=== PATIENT | male | born 1955 | race Caucasian/White ===

== ENCOUNTER → 2022-09-13 | Outpatient (CLI) | payer OTHER, MEDICARE, SELFPAY ==
[2022-09-13 12:03] LABS: Absolute Lymphocyte Count 1.15 X10^3/uL (0.83-4.51); Absolute Neutrophil Count 4.7 X10^3/uL (2.0-7.7); Basophil# 0.04 X10^3/uL; Basophil% 0.6 % (0-1); Eosinophil# 0.14 X10^3/uL; Eosinophils% 2.1 % (0-5); Hematocrit 49.7 % (40-54); Hemoglobin 16.3 g/dL (13.0-16.5); Lymphocyte # 1.15 X10^3/ul (0.83-4.51); Lymphocyte % 17.4 % (19-41); Mean Corp Hgb Conc 32.8 g/dL (32-36); Mean Corpuscular Hgb 29.1 pg (27.0-32.0); Mean Corpuscular Volume 88.8 fL (80-94); Mean Platelet Vol. 11.5 fl (6.2-12.0); Monocyte# 0.53 X10^3/uL; NRBC Flagged by Analyzer 0 % (0-5); Neutrophil # 4.72 X10^3/uL (2.7-7.7); Neutrophil % 71.6 % (47-70); Platelet Count 225 K/mm3 (150-450); RBC Distribution Width SD 42.3 fl (35.1-43.9); White Blood Count 6.6 K/mm3 (4.4-11.0)
[2022-09-13 12:18] LABS: ALB/GLOB Ratio 0.9 RATIO (0.9-2.4); AST(SGOT) 16 U/L (15-37); Alanine Aminotransfer ALT/SGPT 18 U/L (16-61); Albumin, Serum 3.8 g/dL (3.2-5.0); Alkaline Phosphatase 74 U/L (45-117); Anion Gap 6 (5-15); BUN 13 mg/dL (7-18); BUN/Creat Ratio 13.4 RATIO (10-20); Calcium,Total 9.5 mg/dL (8.5-10.1); Chloride 107 mmol/L (98-107); Cholesterol 118 mg/dL (200); Creatinine, Serum 0.97 mg/dL (0.70-1.30); EST Glomerular Filtration Rate 82 mL/min (>60); Est Glom Filt Rate - Afr Amer 100 mL/min (>60); Globulin 4.3 g/dL (2.2-4.2); Glucose 110 mg/dL (74-106); High Density Lipoprotein 28 mg/dL; Potassium 3.9 mmol/L (3.5-5.1); Protein, Total 8.1 g/dL (6.4-8.2); Sodium Level 139 mmol/L (136-145); Triglycerides 132 mg/dL; Very Low Density Lipoprotein 26 mg/dL (5-40)
== END | disposition home or self-care (01) ==
LOC: MFPLAB 09:22
PROVIDERS: PCP Family Medicine; Visit Provider Family Medicine
DX: I10 Essential (primary) hypertension (principal); E78.5 Hyperlipidemia, unspecified
CPT/HCPCS: 36415; 80053; 80061; 85025

== ENCOUNTER 2024-09-24 08:54 | Outpatient (CLI) | payer MEDICARE, SELFPAY ==
--- OUTSIDE RECORDS SUMMARY | 2024-09-24 09:30 | XMS RPT_ITS | CCD ---
Author Organization [facility] ion Partnership [facility] Care Team Providers Care Supervisor [employer] Name Role Phone Brianne Iqbal Attending Unavailable Brianne Iqbal Primary Care Unavailable Problems Problem Classification Problem Date Documented Da te Episodic/Chronic Essential hypertension (1 source) Essential (primary) hypertension; Translations: [Essential (primary) hypertension] Onset: 09-20-2022 Chronic Results Test Name Value Interpretation Reference Range Facility Absolute lymphocyte countOrd ered By: Brianne Iqbal on 09-13-2022 Lymphocytes Auto (Unsp spec) [#/Vol] 1.15 10*3/uL 0.83-4.51 [facility] Basophil percentageOrdered B y: Brianne Iqbal on 09-13-2022 Basophils/100 WBC (Bld) 0.6 % 0-1 [facility] Bilirubin [Mass/Vol] 0.70 mg/dL 0.20-1.00 [facility] Comment on above: For patients on eltr ombopag therapy, use of Dimension [place] TBIL is not recommended. Chloride [Moles/Vol] 107 mmol/L 98-107 [facility] Cholesterol [Mass/Vol] 118 mg/dL <[address] [facility] Comment on above: <200 mg/dL Desirable 200-240 mg/dL Borderline >240 mg/dL High Risk Eosinophils/100 WBC (Bld) 2.1 % 0-5 [facility] Glucose [Mass/Vol] 110 mg/dL 74-106 [facility] Comment on above: Fasting Glucose resu lt from 100 to 125 mg/dL suggests IMPAIRED HOMEOSTASIS per A.D.A. criteria. Neutrophils (Bld) [#/Vol] 4.7 10*3/uL 2.0-7.7 [facility] Neutrophils/100 WBC (Bld) 71.6 % 47-70 [facility] Potassium [Moles/Vol] 3.9 mmol/L 3.5-5.1 [facility] Protein [Mass/Vol] 8.1 g/dL 6.4-8.2 [facility] Sodium [Moles/Vol] 139 mmol/L 136-145 [facility] Triglyceride [Mass/Vol] 132 mg/dL <199 [facility] Comment on above: The drugs N-Acetylcy steine and Metamizole may falsely depress this assay.Serum Triglycerides Reference Interval Normal <150 mg/dL Borderline high 150 - 199 mg/dL High 200 - 499 mg/dL Very High > or = 500 mg/dL WBC (Bld) [#/Vol] 6.6 10*3/uL 4.4-11.0 [facility] Blood erythrocytes count (nu mber/volume)Ordered By: Brianne Iqbal on 09-13-2022 RBC (Bld) [#/Vol] 5.60 10*6/uL 4.6-6.2 [facility] Blood hemoglobin measurement (mass/volume)Ordered By: Brianne Iqbal on 09-13-2022 Hemoglobin (Bld) [Mass/Vol] 16.3 g/dL 13.0-16.5 [facility] Blood lymphocytes/100 leukoc ytesOrdered By: Brianne Iqbal on 09-13-2022 Lymphocytes/100 WBC (Bld) 17.4 % 19-41 [facility] Blood monocytes/100 leukocyt esOrdered By: Brianne Iqbal on 09-13-2022 Monocytes/100 WBC (Bld) 8.0 % 0-10 [facility] Blood platelet mean volumeOr dered By: Brianne Iqbal on 09-13-2022 Platelet mean volume (Bld) [Entitic vol] 11.5 fL 6.2-12.0 [facility] CBC W/Diff, Automatedon Absolute Lymph 1.15 X10 3/uL Normal 0.83-4.51 [facility] Comment on above: Performed By: #### L 100.0100, L500.4100, L500.4050 #### [facility] Laboratory [facility] [address] [place], [place], [id number] Absolute Neut 4.7 X10 3/uL Normal 2.0-7.7 [facility] Comment on above: Performed By: #### L 100.0100, L500.4100, L500.4050 #### [facility] Laboratory [address] [place], [address] Basophils/100 WBC (Bld) 0.6 % Normal 0-1 [facility] Comment on above: Performed By: #### L 100.0100, L500.4100, L500.4050 #### [facility] [address] [place], [address] Eosinophils/100 WBC (Bld) 2.1 % Normal 0-5 [facility] Comment on above: Performed By: #### L 100.0100, L500.4100, L500.4050 #### [facility] [address] [place], [address] Erythrocyte distribution width (RBC) [Ratio] 13.0 % Normal 11.6-14.6 [facility] Comment on above: Performed By: #### L 100.0100, L500.4100, L500.4050 #### [facility] [address] [place], [address] Hematocrit (Bld) [Volume fraction] 49.7 % Normal 40-54 [facility] Comment on above: Performed By: #### L 100.0100, L500.4100, L500.4050 #### [facility] [address] [place], [address] Hemoglobin (Bld) [Mass/Vol] 16.3 g/dL Normal 13.0-16.5 [facility] Comment on above: Performed By: #### L 100.0100, L500.4100, L500.4050 #### [facility] [address] [place], [address] IG% 0.300 Normal 0.0-0.9 [facility] Comment on above: Result Comment: IG% - Immature Granulocytes (promyelocytes, myelocytes and metamyelocytes) > 1% indicates that a LEFT SHIFT is Present. Performed By: #### L 100.0100, L500.4100, L500.4050 #### [facility] [address] [place], [address] Lymphocytes/100 WBC (Bld) 17.4 % Low 19-41 [facility] Comment on above: Performed By: #### L 100.0100, L500.4100, L500.4050 #### [facility] [address] [place], [address] MCH (RBC) [Entitic mass] 29.1 pg Normal 27.0-32.0 [facility] Comment on above: Performed By: #### L 100.0100, L500.4100, L500.4050 #### [facility] [address] [place], [address] MCHC (RBC) [Mass/Vol] 32.8 g/dL Normal 32-36 [facility] Comment on above: Performed By: #### L 100.0100, L500.4100, L500.4050 #### [facility] [address] [place], [address] MCV (RBC) [Entitic vol] 88.8 fL Normal 80-94 [facility] Comment on above: Performed By: #### L 100.0100, L500.4100, L500.4050 #### [facility] [address] [place], [address] Monocytes/100 WBC (Bld) 8.0 % Normal 0-10 [facility] Comment on above: Performed By: #### L 100.0100, L500.4100, L500.4050 #### [facility] [address] [place], [address] Neutrophils/100 WBC (Bld) 71.6 % High 47-70 [facility] Comment on above: Performed By: #### L 100.0100, L500.4100, L500.4050 #### [facility] [address] [place], [address] Nucleated RBC (Bld) [#/Vol] 0 10*3/uL Normal 0-5 [facility] Comment on above: Performed By: #### L 100.0100, L500.4100, L500.4050 #### [facility] [address] [place], [address] Platelet mean volume (Bld) [Entitic vol] 11.5 fL Normal 6.2-12.0 [facility] Comment on above: Performed By: #### L 100.0100, L500.4100, L500.4050 #### [facility] [address] [place], [address] Platelets (Bld) [#/Vol] 225 10*3/uL Normal 150-450 [facility] Comment on above: Performed By: #### L 100.0100, L500.4100, L500.4050 #### [facility] [address] [place], [address] RBC (Bld) [#/Vol] 5.60 10*6/uL Normal 4.6-6.2 [facility] Comment on above: Performed By: #### L 100.0100, L500.4100, L500.4050 #### [facility] [address] [place], [address] RDW SD 42.3 fl Normal 35.1-43.9 [facility] Comment on above: Performed By: #### L 100.0100, L500.4100, L500.4050 #### [facility] [address] [place], [address] WBC (Bld) [#/Vol] 6.6 10*3/uL Normal 4.4-11.0 [facility] Comment on above: Performed By: #### L 100.0100, L500.4100, L500.4050 #### [facility] [address] [place], [address] Comprehensive Metabolic Prof ilon 09-13-2022 Albumin [Mass/Vol] 3.8 g/dL Normal 3.2-5.0 [facility] Comment on above: Performed By: #### L 100.0100, L500.4100, L500.4050 #### [facility] [address] [place], [address] Albumin/Globulin [Mass ratio] 0.9 {ratio} Normal 0.9-2.4 [facility] Comment on above: Performed By: #### L 100.0100, L500.4100, L500.4050 #### [facility] [address] [place], [address] ALK P 74 U/L Normal 45-117 [facility] Comment on above: Performed By: #### L 100.0100, L500.4100, L500.4050 #### [facility] [address] [place], [address] ALT [Catalytic activity/Vol] 18 U/L Normal 16-61 [facility] Comment on above: Performed By: #### L 100.0100, L500.4100, L500.4050 #### [facility] [address] [place], [address] AST [Catalytic activity/Vol] 16 U/L Normal 15-37 [facility] Comment on above: Performed By: #### L 100.0100, L500.4100, L500.4050 #### [facility] [address] [place], [address] Bilirubin [Mass/Vol] 0.70 mg/dL Normal 0.20-1.00 [facility] Comment on above: Result Comment: For patients on eltrombopag therapy, use of Dimension [place] TBIL is not recommended. Performed By: #### L 100.0100, L500.4100, L500.4050 #### [facility] [address] [place], [address] BUN/CRE 13.4 RATIO Normal 10-20 [facility] Comment on above: Performed By: #### L 100.0100, L500.4100, L500.4050 #### [facility] [address] [place], [address] CA,Total 9.5 mg/dL Normal 8.5-10.1 [facility] Comment on above: Performed By: #### L 100.0100, L500.4100, L500.4050 #### [facility] [address] [place], [address] Chloride [Moles/Vol] 107 mmol/L Normal 98-107 [facility] Comment on above: Performed By: #### L 100.0100, L500.4100, L500.4050 #### [facility] [address] [place], [address] CO2 [Moles/Vol] 26.0 mmol/L Normal 21.0-32.0 [facility] Comment on above: Performed By: #### L 100.0100, L500.4100, L500.4050 #### [facility] [address] [place], [address] Creatinine [Mass/Vol] 0.97 mg/dL Normal 0.70-1.30 [facility] Comment on above: Result Comment: The validity of the calculated GFR GFRAA in patients over 70 years has not been determined. Clinical correlation is essential. Performed By: #### L 100.0100, L500.4100, L500.4050 #### [facility] [address] [place], [address] EST GFR - AA 100 mL/min Normal >60 [facility] Comment on above: Result Comment: Afri can [place] GFR Calc Performed By: #### L 100.0100, L500.4100, L500.4050 #### [facility] [address] [place], [address] GAP 6 Normal 5-15 [facility] Comment on above: Performed By: #### L 100.0100, L500.4100, L500.4050 #### [facility] [address] [place], [address] GFR/1.73 sq M.predicted among non-blacks MDRD (S/P/Bld) [Vol rate/Area] 82 mL/min/{1.73_m2} Normal >60 [facility] Comment on above: Result Comment: Non- GFR Calc Performed By: #### L 100.0100, L500.4100, L500.4050 #### [facility] [address] [place], [address] Globulin (S) [Mass/Vol] 4.3 g/dL High 2.2-4.2 [facility] Comment on above: Performed By: #### L 100.0100, L500.4100, L500.4050 #### [facility] [address] [place], [address] Glucose [Mass/Vol] 110 mg/dL High 74-106 [facility] Comment on above: Result Comment: Fast ing Glucose result from 100 to 125 mg/dL suggests IMPAIRED HOMEOSTASIS per A.D.A. criteria. Performed By: #### L 100.0100, L500.4100, L500.4050 #### [facility] [address] [place], [address] Potassium [Moles/Vol] 3.9 mmol/L Normal 3.5-5.1 [facility] Comment on above: Performed By: #### L 100.0100, L500.4100, L500.4050 #### [facility] [address] [place], [address] Sodium [Moles/Vol] 139 mmol/L Normal 136-145 [facility] Comment on above: Performed By: #### L 100.0100, L500.4100, L500.4050 #### [facility] [address] [place], [address] T PROT 8.1 g/dL Normal 6.4-8.2 [facility] Comment on above: Performed By: #### L 100.0100, L500.4100, L500.4050 #### [facility] [address] [place], [address] Urea nitrogen [Mass/Vol] 13 mg/dL Normal 7-18 [facility] Comment on above: Performed By: #### L 100.0100, L500.4100, L500.4050 #### [facility] [address] [place], [address] Determination of erythrocyte mean corpuscular volume (MCV)Ordered By: Brianne Iqbal on 09-13-2022 MCV (RBC) [Entitic vol] 88.8 fL 80-94 [facility] Hematocrit Auto (Bld) [Volum e fraction]Ordered By: Brianne Iqbal on 09-13-2022 Hematocrit (Bld) [Volume fraction] 49.7 % 40-54 [facility] - Chemistry and C hemistry - challengeOrdered By: Brianne Iqbal on 09-13-2022 ALP [Catalytic activity/Vol] 74 U/L 45-117 [facility] ALT [Catalytic activity/Vol] 18 U/L 16-61 [facility] CO2 [Moles/Vol] 26.0 mmol/L 21.0-32.0 [facility] Globulin (S) [Mass/Vol] 4.3 g/dL 2.2-4.2 [facility] Urea nitrogen/Creatinine [Mass ratio] 13.4 mg/mg 10-20 [facility] Laboratory - Hematology and Cell countsOrdered By: Brianne Iqbal on 09-13-2022 Erythrocyte distribution width (RBC) [Entitic vol] 42.3 fL 35.1-43.9 [facility] Erythrocyte distribution width (RBC) [Ratio] 13.0 % 11.6-14.6 [facility] Immature granulocytes/100 WBC (Bld) 0.300 % 0.0-0.9 [facility] Comment on above: IG% - Immature Granu locytes (promyelocytes, myelocytes and metamyelocytes) > 1% indicates that a LEFT SHIFT is Present. MCH (RBC) [Entitic mass] 29.1 pg 27.0-32.0 [facility] Nucleated RBC/100 WBC (Bld) [Ratio] 0 % 0-5 [facility] Lipid Profileon 09-13-2022 Cholesterol [Mass/Vol] 118 mg/dL Normal [address] [facility] Comment on above: Result Comment: <200 mg/dL Desirable 200-240 mg/dL Borderline >240 mg/dL High Risk Performed By: #### L 100.0100, L500.4100, L500.4050 #### [facility] [address] [place], [address] Cholesterol in HDL [Mass/Vol] 28 mg/dL Low [facility] Comment on above: Result Comment: The drugs N-Acetylcysteine and Metamizole may falsely depress this assay. Reference Range HDL <40 mg/dL Low HDL Cholesterol HDL >or= 60 mg/dL High HDL Cholesterol Performed By: #### L 100.0100, L500.4100, L500.4050 #### [facility] [address] [place], [address] Cholesterol in LDL [Mass/Vol] 64 mg/dL Normal 0-130 [facility] Comment on above: Performed By: #### L 100.0100, L500.4100, L500.4050 #### [facility] [address] [place], [address] Cholesterol in VLDL [Mass/Vol] 26 mg/dL Normal 5-40 [facility] Comment on above: Performed By: #### L 100.0100, L500.4100, L500.4050 #### [facility] [address] [place], [address] Triglyceride [Mass/Vol] 132 mg/dL Normal [facility] Comment on above: Result Comment: The drugs N-Acetylcysteine and Metamizole may falsely depress this assay. Serum Triglycerides Reference Interval Normal <150 mg/dL Borderline high 150 - 199 mg/dL High 200 - 499 mg/dL Very High > or = 500 mg/dL Performed By: #### L 100.0100, L500.4100, L500.4050 #### [facility] [address] [place], [address] MCHC Auto (RBC) [Mass/Vol]Or dered By: Brianne Iqbal on 09-13-2022 MCHC (RBC) [Mass/Vol] 32.8 g/dL 32-36 [facility] No Panel InformationOrdered By: Brianne Iqbal on 09-13-2022 Estimated GFR (MDRD) Amer 100 mL/min >60 [facility] Comment on above: GFR Calc Estimated GFR (MDRD) Non-Af Amer 82 mL/min >60 [facility] Comment on above: Non- GFR Calc Platelets bldOrdered By: Nini Iqbal on 09-13-2022 Platelets (Bld) [#/Vol] 225 10*3/uL 150-450 [facility] Serum or plasma albumin elenita urement (mass/volume)Ordered By: Brianne Iqbal on 09-13-2022 Albumin [Mass/Vol] 3.8 g/dL 3.2-5.0 [facility] Serum or plasma albumin/glob ulin mass ratioOrdered By: Brianne Iqbal on 09-13-2022 Albumin/Globulin [Mass ratio] 0.9 {ratio} 0.9-2.4 [facility] Serum or plasma calcium elenita urement (mass/volume)Ordered By: Brianne Iqbal on 09-13-2022 Calcium [Mass/Vol] 9.5 mg/dL 8.5-10.1 [facility] Serum or plasma cholesterol in HDL measurement (mass/volume)Ordered By: Brianne Iqbal on 09-13-2022 Cholesterol in HDL [Mass/Vol] 28 mg/dL >40 [facility] Comment on above: The drugs N-Acetylcy steine and Metamizole may falsely depress this assay. Reference Range HDL <40 mg/dL Low HDL Cholesterol HDL >or= 60 mg/dL High HDL Cholesterol Serum or plasma cholesterol in VLDL measurement (mass/volume)Ordered By: Brianne Iqbal on 09-13-2022 Cholesterol in VLDL [Mass/Vol] 26 mg/dL 5-40 [facility] Serum or plasma creatinine m easurement (mass/volume)Ordered By: Brianne Iqbal on 09-13-2022 Creatinine [Mass/Vol] 0.97 mg/dL 0.70-1.30 [facility] Comment on above: The validity of the calculated GFR & GFRAA in patients over 70 years has not been determined. Clinical correlation is essential. Serum or plasma low density lipoprotein (LDL) cholesterol measurement (mass/volume)Ordered By: Brianne Iqbal on 09-13-2022 Cholesterol in LDL [Mass/Vol] 64 mg/dL 0-130 [facility] Serum or plasma urea nitroge n measurement (mass/volume)Ordered By: Brianne Iqbal on 09-13-2022 Urea nitrogen [Mass/Vol] 13 mg/dL 7-18 [facility] Thin prep Papanicolaou smear with manual screeningOrdered By: Brianne Iqbal on 09-13-2022 Thin prep Papanicolaou smear with manual screening 16 U/L 15-37 [facility] Thin prep Papanicolaou smear with manual screening 6 5-15 [facility] CNPNon 11-06-2020 CARYNN Telephone ([facility]) COSME DANG ([id number]) 1955 M Date Time Provider Department 11/06/20 TANO BELTRÁN During your visit today, we recorded the following information about you: Julieta Cooley LPN 11/06/2020 10:57 AM Signed ----- Message from Tano Beltrán APRN.ROMERO RUBIN sent at 11/05/2020 10:07 PM EDT ----- Please inform the patient: A1C is stable at 6%. Triglycerides are mildly elevated. Good cholesterol is less than optimal. The rest of the lab results are unremarkable. Tano Beltrán APRN.ROMERO RUBIN LPN 11/06/2020 11:01 AM Signed Phoned patient and left message to return call and ask to speak to a nurse. Dede Orta RN 11/08/2020 11:45 AM Signed Patient notified of results and provider's instructions. Patient verbalizes understanding. Dede Orta RN Allergies As of Date: 11/06/2020 Noted Allergy Reaction RAGWEED 10/01/2011 14 - Other: See Comments Date Reviewed: 11/01/2020 Reviewed by: Tano Beltrán APRN.ROMERO RUBIN - Fully Assessed Reason for Visit: Results [95] Prescriptions as of 11/08/2020 - bisoprolol-hydroCHLO ROthiazide (ZIAC) 10-6.25 mg per tablet Take 1 tablet by mouth once daily. - simvastatin (ZOCOR) 20 mg tablet Take 1 tablet by mouth daily at bedtime. - Umajc-1-OOL-EPA-Fish Oil (FISH OIL) 1,000 mg (120 mg-180 mg) cap Take 1 capsule by mouth once daily. - multivitamins(DAILY MULTIVITAMIN TAB) Take one(1) tablet daily. - LORATADINE 10 MG TAB Take one(1) tablet daily. as needed Problem List As Of Date 11/06/2020 Noted Resolved Meniere's Disease [H81.09] 03/09/2009 Change in skin moles [D22.9] 03/09/2009 09/12/2014 Essential Hypertension, Benign [I10] 04/12/2009 Basal Cell Carcinoma of Skin [C44.91] 04/12/2009 Allergic rhinitis [J30.9] 10/01/2011 Impaired fasting glucose [R73.01] 11/16/2015 Hyperlipidemia LDL goal <130 [E78.5] 11/16/2015 Encounter Status:Closed by DEDE ORTA RN on 11/08/20 Normal [facility] CBC and Differentialon 11-04 Abs Baso 0.05 k/uL Normal <0.11 [facility] Comment on above: Performed By: #### C MP, LIPB, HBA1C, CBCDIF #### [facility] [place] [address] Abs [place] 0.67 k/uL Normal <0.87 [facility] Comment on above: Performed By: #### C MP, LIPB, HBA1C, CBCDIF #### [facility] [place] [address] Abs Neut 5.10 k/uL Normal 1.45-7.50 [facility] Comment on above: Performed By: #### C MP, LIPB, HBA1C, CBCDIF #### [facility] [place] [address] Absolute nRBC <0.01 Normal <0.01 [facility] Comment on above: Performed By: #### C MP, LIPB, HBA1C, CBCDIF #### [facility] [address] [place] [address] Basophils/100 WBC (Bld) 0.7 % Normal [facility] Comment on above: Performed By: #### C MP, LIPB, HBA1C, CBCDIF #### [facility] [place] [address] DTYPE Auto Diff Normal [facility] Comment on above: Performed By: #### C MP, LIPB, HBA1C, CBCDIF #### [facility] [place] [address] Eosinophils (Bld) [#/Vol] 0.22 10*3/uL Normal <0.46 [facility] Comment on above: Performed By: #### C MP, LIPB, HBA1C, CBCDIF #### [facility] [address] [place] [address] Eosinophils/100 WBC (Bld) 2.9 % Normal [facility] Comment on above: Performed By: #### C MP, LIPB, HBA1C, CBCDIF #### [place] [address] [place] [address] Erythrocyte distribution width (RBC) [Ratio] 13.2 % Normal 11.5-15.0 [facility] Comment on above: Performed By: #### C MP, LIPB, HBA1C, CBCDIF #### [place] [address] [place] [address] Hematocrit (Bld) [Volume fraction] 52.2 % High 39.0-51.0 [facility] Comment on above: Performed By: #### C MP, LIPB, HBA1C, CBCDIF #### [place] [address] [place] [address] Hemoglobin (Bld) [Mass/Vol] 16.7 g/dL Normal 13.0-17.0 [facility] Comment on above: Performed By: #### C MP, LIPB, HBA1C, CBCDIF #### [place] [address] [place] [address] Lymphocytes (Bld) [#/Vol] 1.46 10*3/uL Normal 1.00-4.00 [facility] [facility] [place] Comment on above: Performed By: #### C MP, LIPB, HBA1C, CBCDIF #### [place] [address] [place] [address] Lymphocytes/100 WBC (Bld) 19.5 % Normal [facility] [place] Comment on above: Performed By: #### C MP, LIPB, HBA1C, CBCDIF #### [place] [address] [place] [address] MCH 29.2 pG Normal 26.0-34.0 [facility] [place] Comment on above: Performed By: #### C MP, LIPB, HBA1C, CBCDIF #### [place] [address] [place] [address] MCHC (RBC) [Mass/Vol] 32.0 g/dL Normal 30.5-36.0 [facility] Comment on above: Performed By: #### C MP, LIPB, HBA1C, CBCDIF #### [place] [address] [place] [address] MCV (RBC) [Entitic vol] 91.4 fL Normal 80.0-100.0 [facility] Comment on above: Performed By: #### C MP, LIPB, HBA1C, CBCDIF #### [place] [address] Monocytes/100 WBC (Bld) 8.9 % Normal [facility] Comment on above: Performed By: #### C MP, LIPB, HBA1C, CBCDIF #### [place] [address] Neutrophils/100 WBC (Bld) 68.0 % Normal [facility] [place] Comment on above: Performed By: #### C MP, LIPB, HBA1C, CBCDIF #### [place] [address] NRBCs 0.0 /100 WBC Normal 0 [facility] [place] Comment on above: Performed By: #### C MP, LIPB, HBA1C, CBCDIF #### [place] [address] Platelet mean volume (Bld) [Entitic vol] 11.9 fL Normal 9.0-12.7 [facility] [place] Comment on above: Performed By: #### C MP, LIPB, HBA1C, CBCDIF #### [address] [place], [place] [address] Platelets (Bld) [#/Vol] 204 10*3/uL Normal 150-400 [facility] [place] Comment on above: Performed By: #### C MP, LIPB, HBA1C, CBCDIF #### [place] [address] [place], [place] [address] RBC (Bld) [#/Vol] 5.71 10*6/uL Normal 4.20-6.00 [facility] Comment on above: Performed By: #### C MP, LIPB, HBA1C, CBCDIF #### [address] [address] WBC (Bld) [#/Vol] 7.50 10*3/uL Normal 3.70-11.00 [facility] Comment on above: Performed By: #### C MP, LIPB, HBA1C, CBCDIF #### [address] [address] Comp Metabolic Panelon 11-04 Albumin [Mass/Vol] 4.7 g/dL Normal 3.9-4.9 [facility] Comment on above: Performed By: #### C MP, LIPB, HBA1C, CBCDIF #### [place] [address] [place], [place] [address] ALP [Catalytic activity/Vol] 69 U/L Normal 38-113 [facility] [place] Comment on above: Performed By: #### C MP, LIPB, HBA1C, CBCDIF #### [place] [address] [place], [place] [address] ALT [Catalytic activity/Vol] 10 U/L Normal 10-54 [facility] [place] Comment on above: Performed By: #### C MP, LIPB, HBA1C, CBCDIF #### [place] [address] [place], [place] [address] Anion gap [Moles/Vol] 11 mmol/L Normal 9-18 [facility] Comment on above: Performed By: #### C MP, LIPB, HBA1C, CBCDIF #### [facility] [address] [place], [place] [address] AST [Catalytic activity/Vol] 18 U/L Normal 14-40 [facility] [place] Comment on above: Performed By: #### C MP, LIPB, HBA1C, CBCDIF #### [facility] [address] [place] [address] Bilirubin [Mass/Vol] 0.6 mg/dL Normal 0.2-1.3 [facility] Comment on above: Performed By: #### C MP, LIPB, HBA1C, CBCDIF #### [place] [address] [place] [address] Calcium [Mass/Vol] 10.1 mg/dL Normal 8.5-10.2 [facility] Comment on above: Performed By: #### C MP, LIPB, HBA1C, CBCDIF #### [place] [address] [place], [place] [address] Chloride [Moles/Vol] 104 mmol/L Normal 97-105 [facility] Comment on above: Performed By: #### C MP, LIPB, HBA1C, CBCDIF #### [facility] [address] [place], [place] [address] CO2 [Moles/Vol] 24 mmol/L Normal 22-30 [facility] [place] Comment on above: Performed By: #### C MP, LIPB, HBA1C, CBCDIF #### [facility] [address] [place], [place] [address] Creatinine [Mass/Vol] 0.93 mg/dL Normal 0.73-1.22 [facility] Comment on above: Performed By: #### C MP, LIPB, HBA1C, CBCDIF #### [facility] [address] [place] [id number] eGFR- Amer. >60 Normal [facility] Comment on above: Performed By: #### C MP, LIPB, HBA1C, CBCDIF #### [facility] [address] [employer] [place], [place] [address] eGFR-All Other Races >60 Normal [facility] Comment on above: Result Comment: eGFR (Estimated GFR) Units of measure: mL/min/1.73 meters squared eGFR is derived from the reexpressed MDRD Study equation using the following parameters: serum creatinine, age, gender and race. The creatinine assay has been calibrated to be traceable to IDMS. An eGFR <60 mL/min/1.73m2 for >3 months is consistent with chronic kidney disease. Refer to KDOQI guidelines for clinical interpretation. In patients with unstable renal function, e.g. those with acute kidney injury, the eGFR may not accurately reflect actual GFR. Performed By: #### C MP, LIPB, HBA1C, CBCDIF #### [facility] [address] [place], [place] [address] Glucose [Mass/Vol] 100 mg/dL High 74-99 [facility] Comment on above: Result Comment: The [place] Diabetes Association (ADA) provides guidance for cutoff values for fasting glucose and random glucose. The ADA defines fasting as no caloric intake for at least 8 hours. Fasting plasma glucose results between 100 to 125 mg/dL indicate increased risk for diabetes (prediabetes). Fasting plasma glucose results greater than or equal to 126 mg/dL meet the criteria for diagnosis of diabetes. In the absence of unequivocal hyperglycemia, results should be confirmed by repeat testing. In a patient with classic symptoms of hyperglycemia or hyperglycemic crisis, random plasma glucose results greater than or equal to 200 mg/dL meet the criteria for diagnosis of diabetes. Reference: Standards of Medical Care in Diabetes 2016, [place] Diabetes Association. Diabetes Care. 2016.39(Suppl 1). Performed By: #### C MP, LIPB, HBA1C, CBCDIF #### [facility] [address] [place], [place] [address] Potassium [Moles/Vol] 4.1 mmol/L Normal 3.7-5.1 [facility] Comment on above: Performed By: #### C MP, LIPB, HBA1C, CBCDIF #### [facility] [address] [place] [address] Protein [Mass/Vol] 7.9 g/dL Normal 6.3-8.0 [facility] Comment on above: Performed By: #### C MP, LIPB, HBA1C, CBCDIF #### [place] [address] Sodium [Moles/Vol] 139 mmol/L Normal 136-144 [facility] Comment on above: Performed By: #### C MP, LIPB, HBA1C, CBCDIF #### [place] [address] Urea nitrogen [Mass/Vol] 11 mg/dL Normal 9-24 [facility] [place] Comment on above: Performed By: #### C MP, LIPB, HBA1C, CBCDIF #### [place] [address] Hemoglobin A1con 11-04-2020 Glucose [Mass/Vol] 126 mg/dL Normal [facility] Comment on above: Result Comment: eAG: (Estimated average glucose) is a calculated value from HgbA1c and is player services representative of the average blood glucose level in the last 2-3 month period. Performed By: #### C MP, LIPB, HBA1C, CBCDIF #### [place] [address] HbA1c (Bld) [Mass fraction] 6.0 % High 4.3-5.6 [facility] [place] Comment on above: Result Comment: [place] Diabetes Association guidelines indicate that patients with HgbA1c in the range 5.7-6.4% are at increased risk for development of diabetes, and intervention by lifestyle modification may be beneficial. HgbA1c greater or equal to 6.5% is considered diagnostic of diabetes. Performed By: #### C MP, LIPB, HBA1C, CBCDIF #### [address] [address] Lipid Panel, [place] 021 Cholesterol [Mass/Vol] 134 mg/dL Normal <200 [facility] Comment on above: Result Comment: <200 mg/dL, Desirable 200-239 mg/dL, Borderline high >239 mg/dL, High Performed By: #### C MP, LIPB, HBA1C, CBCDIF #### [facility] [address] [place] [address] Cholesterol in HDL [Mass/Vol] 34 mg/dL Low >39 [facility] [place] Comment on above: Result Comment: 40-5 9 mg/dL, Acceptable >59 mg/dL, High: Negative risk factor for coronary heart disease <40 mg/dL, Low: Positive risk factor for coronary heart disease Performed By: #### C MP, LIPB, HBA1C, CBCDIF #### [place] [address] [place] [address] Cholesterol in LDL [Mass/Vol] 67 mg/dL Normal <100 [facility] [place] Comment on above: Result Comment: <100 mg/dL, Optimal 100-129 mg/dL, Near optimal/above optimal 130-159 mg/dL, Borderline high 160-189 mg/dL, High >189 mg/dL, Very high Secondary prevention optimal LDL Cholesterol levels are recommended to be < 70 mg/dL Performed By: #### C MP, LIPB, HBA1C, CBCDIF #### [facility] [address] [place], [place] [address] Fasting Time 12 hrs Normal [facility] [place] Comment on above: Performed By: #### C MP, LIPB, HBA1C, CBCDIF #### [facility] [address] [place], [place] [address] LDL:HDL Ratio 1.97 Normal <2.54 [facility] [place] Comment on above: Result Comment: Refe rence: 1. National Cholesterol Education Program ATP III Guideline At-A-Glance Quick Desk Reference: National Heart, Lung, and Blood [place]. National Institutes of Health. 2001: NIH Publication No. 01-3305. 2. An International Atherosclerosis Society position paper: global recommendations for the management of dyslipidemia: executive summary, Atherosclerosis. 2014: 232(2):410-413. Performed By: #### C MP, LIPB, HBA1C, CBCDIF #### [place] [address] [place] [address] Non HDL Cholesterol 100 mg/dL Normal <130 [facility] Comment on above: Result Comment: <130 mg/dL, Optimal 130-159 mg/dL, Near optimal/above optimal 160-189 mg/dL, Borderline high 190-219 mg/dL, High >219 mg/dL, Very high Secondary prevention optimal non HDL Cholesterol levels are recommended to be < 100 mg/dL Performed By: #### C MP, LIPB, HBA1C, CBCDIF #### [place] [address] TC:HDL Ratio 3.94 Normal <5.10 [facility] [place] Comment on above: Performed By: #### C MP, LIPB, HBA1C, CBCDIF #### [place] [address] [place] [address] Triglyceride [Mass/Vol] 165 mg/dL High <150 [facility] Comment on above: Result Comment: <150 mg/dL, Normal 150-199 mg/dL, Borderline high 200-499 mg/dL, High >499 mg/dL, Very high Performed By: #### C MP, LIPB, HBA1C, CBCDIF #### [place] [address] VLDL Cholesterol 33 mg/dL High <30 [facility] Comment on above: Performed By: #### C MP, LIPB, HBA1C, CBCDIF #### [place] [address] CNOVon 11-01-2020 CNOV Office Visit (FAMPWS) COSME DANG ([id number]) 1955 M Date Time Provider Department 11/01/20 11:20 AM TANO BELTRÁN During your visit today, we recorded the following information about you: Temperature Pulse Respiration Blood pressure 97.8 degrees 64/minute 16/minute 112/76 Weight 95.7 kg Tano Beltrán APRN.NAPHTHALENE OPERATOR HELPER, ROMERO 11/01/2020 12:04 PM Signed Chief Complaint Patient presents with: Transition Of Care HPI Cosme Dang is a 65 year old male who presents here today for a established physical exam. Past Medical History: Specialty Providers: None [facility] was an established patient Dr. Felipe Salgado III, MD who retired. This is a new patient to me. No recent ER visits or hospitalizations. HTN: Compliance with blood pressure medication. Blood pressure today is 112/76. Denies side effects from medication. Denies headaches, lightheadedness or dizziness. No chest pain, difficulty breathing or shortness of breath. No chronic pain or chronic muscle or joint pain. No history of chronic constipation or diarrhea. HLD: Currently on simvastatin for high cholesterol. Cholesterol well controlled and last checked approximately 2 years ago. Overdue for lipid panel. Drinks about 2 sodas a day. Used to drink more. Moderately watches his diet. Tries to eat healthy. Past medical history, appointments, medications, allergies reviewed 11/01/2020 Previous Medical History PAST MEDICAL HISTORY Diagnosis Date - Allergic rhinitis 10/01/2011 - Asthma - Basal cell carcinoma of skin 04/12/2009 - Albert's palsy 1984 - Cancer of the skin, basal cell 03/22 - Essential hypertension, benign 04/12/2009 - Hyperlipidemia 10/01/2011 - Hyperlipidemia LDL goal <130 11/16/2015 - Hypertension - Impaired fasting glucose 11/16/2015 - Meniere's disease 1991 - Meniere's disease 03/09/2009 Previous Surgical History PAST SURGICAL HISTORY Procedure Laterality Date - COLONOSCOPY GEN ANES 2014, no polpys Family History FAMILY HISTORY Problem Relation Age of Onset - Colon Cancer Mother - Cancer Father skin CA - other (Parkinson's disease) Father - Skin Cancer Sister - Heart Maternal Grandmother DC - Cancer Paternal Grandmother abdomen - unknown Patient Allergies ALLERGIES Allergen Reactions - Ragweed Other: See Comments Current Medications Current Outpatient Medications on File Prior to Visit Medication Sig - bisoprolol-hydroCHLO ROthiazide (ZIAC) 10-6.25 mg per tablet Take 1 tablet by mouth once daily. - simvastatin (ZOCOR) 20 mg tablet Take 1 tablet by mouth daily at bedtime. - Esdsp-5-VWA-EPA-Fish Oil (FISH OIL) 1,000 mg (120 mg-180 mg) cap Take 1 capsule by mouth once daily. - multivitamins(DAILY MULTIVITAMIN TAB) Take one(1) tablet daily. - LORATADINE 10 MG TAB Take one(1) tablet daily. as needed No current facility-administere d medications on file prior to visit. Social History Social History Tobacco Use - Smoking status: Never Smoker - Smokeless tobacco: Never Used Vaping Use - Vaping Use: Never used Substance Use Topics - Alcohol use: No - Drug use: No Review of Symptoms GENERAL: No unintentional weight loss, malaise or fevers. HEENT: Negative for frequent or significant headaches No significant change in vision. No nasal discharge No sore throat, difficulty swallowing No hearing loss. NECK: Negative for lumps, pain RESPIRATORY: Negative for cough or hemoptysis. No wheezing, dyspnea or shortness of breath CARDIOVASCULAR: Negative for chest pain GI: No nausea, vomiting, or diarrhea. No blood in stool : No dysuria, frequency, urgency. No hematuria. MUSCULOSKELETAL: Negative for generalized joint pain, swelling, back pain or muscle aches SKIN: Negative for lesions HEMATOLOGY/LYMPHOLOG Y: Negative for swollen nodes EXAM: BP 112/76 Pulse 64 Temp 36.6 ?C (97.8 ?F) Resp 16 Wt 95.7 kg (211 lb) General Appearance: Well appearing, alert, in no acute distress, well-hydrated, well nourished. obese Skin: Skin color, texture, turgor normal, no suspicious rashes or lesions. Head: Normocephalic, no masses, lesions, tenderness or abnormalities. Eyes: Anicteric sclera. Pupils are equally round and reactive to light. Extraocular movements are intact. Ears: External ears normal, canals clear, TM's clear with adequate light reflex. Nose/Sinuses: Nares normal, septum midline, mucosa normal, no drainage or sinus tenderness. Oropharynx: Lips, mucosa, and tongue normal, teeth and gums normal, oropharynx nonreddened. Neck: Supple, no adenopathy; thyroid symmetric, normal size, no bruits. Lymph Nodes: No cervical lymphadenopathy, No supraclavicular lymphadenopathy Lungs: Lungs clear to auscultation. No wheezing, rhonchi, rales. Heart: RRR without murmur, gallop, or rubs. No ectopy. Normal S1 and S2. Abdomen: Abdomen soft, non-tender. Jabier (more content not included)... Normal [facility] CNCOon 07-18-2020 CNCO Letter Text Normal [facility] OBSOLETEon 07-17-2020 OBSOLETE Refill (HIEU) COSME DANG ([id number]) 1955 M Date Time Provider Department 07/17/20 TANO BELTRÁN During your visit today, we recorded the following information about you: Dede Crouch Carmen SALIMA 07/17/2020 12:07 PM Signed Pt called in and he has not been seen since 12/31/18. Was not aware Dr. Salgado and Veronica had retired. He Would like to stay with you Tano Beltrán to be his doctor if possible. He is aware he is due for a physical and lab work. Please advise pt on this and help set up apts if okay. Also the medications below he sometimes takes every other day because they make him dizzy off and on. Calling for refills on medications. Patient has been identified by name and date of : Yes Patient phones for refill(s): Pending Prescriptions Disp Refills BISOPROLOL 10 MG-HYDROCHLOROTHIAZI DE 6.25 MG TABLET 90 tablet 3 Sig: Take 1 tablet by mouth once daily. ROB: No SIMVASTATIN 20 MG TABLET 90 tablet 3 Sig: Take 1 tablet by mouth daily at bedtime. ROB: No Date of last office visit in primary care: 12/31/18 Last 2 Encounter Wt Readings: Date: Wt: 12/31/2018 93.4 kg (206 lb) 12/15/2017 95.3 kg (210 lb) Previous labs/tests for medication: Cholesterol: HDL Cholesterol (mg/dL) Date Value 12/19/2018 28 LDL Cholesterol (mg/dL) Date Value 12/19/2018 47 ALT (U/L) Date Value 12/19/2018 12 Non HDL Cholesterol (mg/dL) Date Value 12/19/2018 87 Blood Pressure: BUN (mg/dL) Date Value 12/19/2018 14 Sodium (mmol/L) Date Value 12/19/2018 138 Last 1 Encounter BP Readings: Date: BP: 12/31/2018 100/70 Please advise. Thank you. Dede Beltrán APRN.ROMERO RUBIN 07/17/2020 3:37 PM Signed Bella espinoza you go ahead and schedule this patient an appointment within the next 1 to 2 months for routine physical exam. I will order the lab work at the time of his appointment. Please make it a morning appointment so that he is fasting and can get his lab work done after his appointment. The following approved medication requests have been transmitted electronically. Pending Prescriptions Disp Refills BISOPROLOL 10 MG-HYDROCHLOROTHIAZI DE 6.25 MG TABLET 90 tablet 0 Sig: Take 1 tablet by mouth once daily. ROB: No SIMVASTATIN 20 MG TABLET 90 tablet 0 Sig: Take 1 tablet by mouth daily at bedtime. ROB: No Tano Beltrán APRN.ROMERO RUBIN LPN 07/18/2020 3:10 PM Signed Ana Maria jones busy. Tried cell phone number and it says not a working number. Mailed a letter. asking pt to call the office. See message below. Pt to call in and ask to speak to a triage nurse. Dede Morales LPN Allergies As of Date: 07/17/2020 Noted Allergy Reaction RAGWEED 10/01/2011 14 - Other: See Comments Date Reviewed: 12/31/2018 Reviewed by: Jae Martino LPN - Fully Assessed Reason for Visit: Refill Request [94] Visit Diagnoses:Essential hypertension, benign [I10] Hyperlipidemia, unspecified hyperlipidemia type [E78.5] Order(s):bisoprolol- hydroCHLOROthiazide (ZIAC) 10-6.25 mg per tabletTake 1 tablet by mouth once daily.Disp: 90 tabletRfl: 0 simvastatin (ZOCOR) 20 mg tabletTake 1 tablet by mouth daily at bedtime.Disp: 90 tabletRfl: 0 Prescriptions as of 07/17/2020 Sig: BISOPROLOL 10 MG-HYDROCHLOROT* Take 1 tablet by mouth once d* SIMVASTATIN 20 MG TABLET Take 1 tablet by mouth daily * OMEGA 7-VPN-ROS-FISH OIL 1,00* Take 1 capsule by mouth once * * DAILY MULTIVITAMIN TABLET Take one(1) tablet daily. * LORATADINE 10 MG TABLET Take one(1) tablet daily. as* Problem List As Of Date 07/17/2020 Noted Resolved Meniere's Disease [H81.09] 03/09/2009 Change in skin moles [D22.9] 03/09/2009 09/12/2014 Essential Hypertension, Benign [I10] 04/12/2009 Basal Cell Carcinoma of Skin [C44.91] 04/12/2009 Allergic rhinitis [J30.9] 10/01/2011 Impaired fasting glucose [R73.01] 11/16/2015 Hyperlipidemia LDL goal <130 [E78.5] 11/16/2015 Prescriptions ordered this encounter Disp Refills Start End BISOPROLOL 10 MG-HYDROCHLOROTHIAZI DE* 90 t* 0 07/17/2020 10/15/2020 Route: ORAL Sig: Take 1 tablet by mouth once daily. SIMVASTATIN 20 MG TABLET 90 t* 0 07/17/2020 10/15/2020 Route: ORAL Sig: Take 1 tablet by mouth daily at bedtime. Medications Discontinued During This Encounter Prescriptions - bisoprolol-hydrochlo rothiazide (ZIAC) 10-6.25 mg per tablet (Discontinued) Take 1 tablet by mouth once daily. - simvastatin (ZOCOR) 20 mg tablet (Discontinued) Take 1 tablet by mouth daily at bedtime. Encounter Status:Closed by TANO BELTRÁN on 07/17/20 [facility] Encounters Encounter Date Encounter Type Care Provider Facility Start: 09-13-2022 End: 09-13-2022 [facility] [place] [facility] Work Phone: Start: 09-13-2022 End: 09-13-2022 Patient encounter procedure [facility], [facility] Payers Date Payer Category Payer Medicare [id number] 2022 Self-pay 2022 Unknown [id number] Unknown [id number] Social History Date Type Detail Facility Tobacco smoking stat [facility] Unknown if ever smoked [facility] Work Phone: Start: 1955 Sex Assigned At Male [facility] Progress note 11-01-2020 Note Date & Type Note Facility 11-01-2020 Note HNO ID: [id number] Author: Tano Beltrán APRN.NAPHTHALENE OPERATOR HELPER, DNP Service: ? Author Type: Nurse Practitioner Type: Progress Notes Filed: 11/01/2020 12:04 PM Note Text: Chief Complaint Patient presents with: Transition Of Care HPI Cosme Dang is a 65 year old male who presents here today for a established physical exam. Past Medical History: Specialty Providers: None [facility] to the [facility] was an established patient Dr. Felipe Salgado III, MD who retired. This is a new patient to me. No recent ER visits or hospitalizations. HTN: Compliance with blood pressure medication. Blood pressure today is 112/76. Denies side effects from medication. Denies headaches, lightheadedness or dizziness. No chest pain, difficulty breathing or shortness of breath. No chronic pain or chronic muscle or joint pain. No history of chronic constipation or diarrhea. HLD: Currently on simvastatin for high cholesterol. Cholesterol well controlled and last checked approximately 2 years ago. Overdue for lipid panel. Drinks about 2 sodas a day. Used to drink more. Moderately watches his diet. Tries to eat healthy. Past medical history, appointments, medications, allergies reviewed 11/01/2020 Previous Medical History PAST MEDICAL HISTORY Diagnosis Date - Allergic rhinitis 10/01/2011 - Asthma - Basal cell carcinoma of skin 04/12/2009 - Albert's palsy 1985 - Cancer of the skin, basal cell 03/22 - Essential hypertension, benign 04/12/2009 - Hyperlipidemia 10/01/2011 - Hyperlipidemia LDL goal <130 11/16/2015 - Hypertension - Impaired fasting glucose 11/16/2015 - Meniere's disease 1992 - Meniere's disease 03/09/2009 Previous Surgical History PAST SURGICAL HISTORY Procedure Laterality Date - COLONOSCOPY GEN ANES 2014, no polpys Family History FAMILY HISTORY Problem Relation Age of Onset - Colon Cancer Mother - Cancer Father skin CA - other (Parkinson's disease) Father - Skin Cancer Sister - Heart Maternal Grandmother [place] - Cancer Paternal Grandmother abdomen - unknown Patient Allergies ALLERGIES Allergen Reactions - Ragweed Other: See Comments Current Medications Current Outpatient Medications on File Prior to Visit Medication Sig - bisoprolol-hydroCHLOROthiazide (ZIAC) 10-6.25 mg per tablet Take 1 tablet by mouth once daily. - simvastatin (ZOCOR) 20 mg tablet Take 1 tablet by mouth daily at bedtime. - Yxlqp-7-BDM-EPA-Fish Oil (FISH OIL) 1,000 mg (120 mg-180 mg) cap Take 1 capsule by mouth once daily. - multivitamins(DAILY MULTIVITAMIN TAB) Take one(1) tablet daily. - LORATADINE 10 MG TAB Take one(1) tablet daily. as needed No current facility-administered medications on file prior to visit. Social History Social History Tobacco Use - Smoking status: Never Smoker - Smokeless tobacco: Never Used Vaping Use - Vaping Use: Never used Substance Use Topics - Alcohol use: No - Drug use: No Review of Symptoms GENERAL: No unintentional weight loss, malaise or fevers. HEENT: Negative for frequent or significant headaches No significant change in vision. No nasal discharge No sore throat, difficulty swallowing No hearing loss. NECK: Negative for lumps, pain RESPIRATORY: Negative for cough or hemoptysis. No wheezing, dyspnea or shortness of breath CARDIOVASCULAR: Negative for chest pain GI: No nausea, vomiting, or diarrhea. No blood in stool : No dysuria, frequency, urgency. No hematuria. MUSCULOSKELETAL: Negative for generalized joint pain, swelling, back pain or muscle aches SKIN: Negative for lesions HEMATOLOGY/LYMPHOLOGY: Negative for swollen nodes EXAM: BP 112/76 Pulse 64 Temp 36.6 ?C (97.8 ?F) Resp 16 Wt 95.7 kg (211 lb) General Appearance: Well appearing, alert, in no acute distress, well-hydrated, well nourished. obese Skin: Skin color, texture, turgor normal, no suspicious rashes or lesions. Head: Normocephalic, no masses, lesions, tenderness or abnormalities. Eyes: Anicteric sclera. Pupils are equally round and reactive to light. Extraocular movements are intact. Ears: External ears normal, canals clear, TM's clear with adequate light reflex. Nose/Sinuses: Nares normal, septum midline, mucosa normal, no drainage or sinus tenderness. Oropharynx: Lips, mucosa, and tongue normal, teeth and gums normal, oropharynx nonreddened. Neck: Supple, no adenopathy; thyroid symmetric, normal size, no bruits. Lymph Nodes: No cervical lymphadenopathy, No supraclavicular lymphadenopathy Lungs: Lungs clear to auscultation. No wheezing, rhonchi, rales. Heart: RRR without murmur, gallop, or rubs. No ectopy. Normal S1 and S2. Abdomen: Abdomen soft, non-tender. Bowel sounds normal. No masses, organomegaly. No epigastric tenderness. No upper quadrant abdominal tenderness. No lower quadrant abdominal tenderness. No rebound tenderness. No CVA tenderness Extremities: No deformities, edema, skin discoloration. Good capillary refill. (more content not included)... [facility] Progress note 05-29-2020 Note Date & Type Note Facility 05-29-2020 Note HNO ID: [id number] Author: Manny Eubanks MA Service: ? Author Type: Public Relations Coordinator Type: Progress Notes Filed: 05/29/2020 4:20 PM Note Text: Care Gap Reviewed: Follow-up appointment Phone call placed to patient. Pt identified by name and : NO Outreach Outcome/Action: Unable to reach patient: Phone number not valid / voicemail full If patient deferred or declined to schedule appointment, please indicate the reason(s): Other Manny Eubanks [facility] Clinical Note 05-29-2020 Note Date & Type Note Facility 05-29-2020 Note Patient Outreach (FA [facility]) COSME DANG ([id number]) 1955 M Date Time Provider Department 05/29/20 MANNY EUBANKS During your visit today, we recorded the following information about you: Manny Eubanks MA 05/29/2020 4:20 PM Signed Care Gap Reviewed: Follow-up appointment Phone call placed to patient. Pt identified by name and : NO Outreach Outcome/Action: Unable to reach patient: Phone number not valid / voicemail full If patient deferred or declined to schedule appointment, please indicate the reason(s): Other Manny Eubanks Allergies As of Date: 05/29/2020 Noted Allergy Reaction RAGWEED 10/01/2011 14 - Other: See Comments Date Reviewed: 12/31/2018 Reviewed by: Jae Martino LPN - Fully Assessed Reason for Visit: Appointment [186] Cmt: HTN Prescriptions as of 05/29/2020 Sig: BISOPROLOL 10 MG-HYDROCHLOROT* Take 1 tablet by mouth once d* SIMVASTATIN 20 MG TABLET Take 1 tablet by mouth daily * OMEGA 5-FZI-NXK-FISH OIL 1,00* Take 1 capsule by mouth once * * DAILY MULTIVITAMIN TABLET Take one(1) tablet daily. * LORATADINE 10 MG TABLET Take one(1) tablet daily. as* Problem List As Of Date 05/29/2020 Noted Resolved Meniere's Disease [H81.09] 03/09/2009 Change in skin moles [D22.9] 03/09/2009 09/12/2014 Essential Hypertension, Benign [I10] 04/12/2009 Basal Cell Carcinoma of Skin [C44.91] 04/12/2009 Allergic rhinitis [J30.9] 10/01/2011 Impaired fasting glucose [R73.01] 11/16/2015 Hyperlipidemia LDL goal <130 [E78.5] 11/16/2015 Encounter Status:Closed by MANNY EUBANKS MA on 05/29/20 [facility] Evaluation note Note Date & Type Note Facility Evaluation note No assessment information availa chapin [facility] Work Phone: Summary Purpose Family History No Family History Records FoundNo Family History Records Found Advance Directives No Advanced Directives Records FoundNo Advanced Directives Records Found Additional Source Comments (unrecognized sect ion and content) No Status Records FoundNo Status Records Found INFORMATION SOURCE (unrecogn ized section and content) DATE CREATED AUTHOR 04/01/2021 [facility] DATE CREATED AUTHOR AUTHOR'S ORGANIZ ATION 09/20/2022 [facility] Care Teams (unrecognized sec tion and content) Team Status: Active Member Role Status Dates Dr. Felipe Salgado III, MD Family Provider Active Brianne Iqbal MD Primary Care Provider Active Team Status: Inactive Member Role Status Dates Brianne Iqbal MD Primary Care Provider, Attending Prov ider Active Goals (unrecognized section and content) Goals may be documented in a n alternate section FOR RECORDS PERTAINING TO PATIENTS WHO ARE OR HAVE BEEN ENROLLED IN A CHEMICAL DEPENDENCY/SUBSTANCEABUSE PROGRAM, SOME INFORMATION MAY BE OMITTED. This clinical summary was aggregated from multiple sources. Caution should be exercised in using it in the provision of clinical care. This summary normalizes information from multiple sources, and as a consequence, information in this document may materially change the coding, format and clinical context of patient data. In addition, data may be omitted in some cases. CLINICAL DECISIONS SHOULD BE BASED ON THE PRIMARY CLINICAL RECORDS. [employer] [facility]. provides no warranty or guarantee of the accuracy or completeness of information in this document.
[2024-09-24 12:37] LABS: Hematocrit 51.0 % (40-54); Hemoglobin 16.8 g/dL (13.0-16.5); Immature Granulocytes Count 0.050 X10^3/uL (0.0-0.0); Mean Corp Hgb Conc 32.9 g/dL (32-36); Mean Corpuscular Volume 90.3 fL (80-94); Mean Platelet Vol. 11.8 fl (6.2-12.0); NRBC Flagged by Analyzer 0 % (0-5); Platelet Count 215 K/mm3 (150-450); RBC Distribution Width CV 12.8 % (11.6-14.6); RBC Distribution Width SD 41.9 fl (35.1-43.9); Red Blood Count 5.65 M/mm3 (4.6-6.2); White Blood Count 8.3 K/mm3 (4.4-11.0)
[2024-09-24 13:35] LABS: Cholesterol 110 mg/dL (<=200); Low Density Lipoprotein Calc. 46 mg/dL; Triglycerides 146 mg/dL; Very Low Density Lipoprotein 29 mg/dL (5-40); Vitamin D,25 Hydroxy 39.8 ng/mL (30-100); cholesterol:hdl ratio screen 3.18
[2024-09-24 13:36] LABS: AST(SGOT) 21 U/L (<=37); Alanine Aminotransfer ALT/SGPT 11 U/L (<=46); Albumin, Serum 4.5 g/dL (3.4-4.8); Alkaline Phosphatase 72 U/L (40-129); Anion Gap 15 (5-15); BUN 16 mg/dL (4-19); BUN/Creat Ratio 15.2 RATIO (10-20); Calcium,Total 10.3 mg/dL (7.6-11.0); Carbon Dioxide 23.6 mmol/L (21.0-32.0); Chloride 101 mmol/L (98-108); Globulin 3.7 g/dL (2.2-4.2); Glucose 123 mg/dL (70-99); Potassium 4.2 mmol/L (3.3-5.1)
== END 2024-09-24 23:59 | disposition home or self-care (01) ==
LOC: MFPLAB 08:55
PROVIDERS: PCP Family Medicine; Visit Provider Family Medicine
DX: Z13.1 Encounter for screening for diabetes mellitus (principal); I10 Essential (primary) hypertension
CPT/HCPCS: 36415; 80053; 80061; 82306; 83036; 85025

== ENCOUNTER → 2024-10-12 | Outpatient (CLI) | payer OTHER, MEDICARE, SELFPAY ==
[2024-10-12 12:42] LABS: Hematocrit 48.9 % (40-54); Hemoglobin 16.1 g/dL (13.0-16.5); Immature Granulocytes Count 0.040 X10^3/uL (0.0-0.0); Mean Corp Hgb Conc 32.9 g/dL (32-36); Mean Corpuscular Volume 90.6 fL (80-94); Mean Platelet Vol. 12.0 fl (6.2-12.0); NRBC Flagged by Analyzer 0 % (0-5); Platelet Count 190 K/mm3 (150-450); RBC Distribution Width CV 13.0 % (11.6-14.6); RBC Distribution Width SD 43.2 fl (35.1-43.9); Red Blood Count 5.40 M/mm3 (4.6-6.2); White Blood Count 7.1 K/mm3 (4.4-11.0)
[2024-10-12 13:49] LABS: AST(SGOT) 23 U/L (<=37); Alanine Aminotransfer ALT/SGPT 13 U/L (<=46); Albumin, Serum 4.3 g/dL (3.4-4.8); Alkaline Phosphatase 63 U/L (40-129); Anion Gap 14 (5-15); BUN 16 mg/dL (4-19); BUN/Creat Ratio 16.3 RATIO (10-20); Calcium,Total 9.7 mg/dL (7.6-11.0); Carbon Dioxide 22.1 mmol/L (21.0-32.0); Chloride 103 mmol/L (98-108); Cholesterol 111 mg/dL (<=200); Globulin 3.4 g/dL (2.2-4.2); Glucose 178 mg/dL (70-99); Low Density Lipoprotein Calc. 52 mg/dL; PSA,Total - Annual Screen 0.79 ng/mL (0.02-4.00); Potassium 3.8 mmol/L (3.3-5.1); Triglycerides 134 mg/dL; Very Low Density Lipoprotein 27 mg/dL (5-40); cholesterol:hdl ratio screen 3.44
== END | disposition home or self-care (01) ==
LOC: MFPLAB 09:13
PROVIDERS: PCP Family Medicine; Referring Provider Family Medicine; Visit Provider Family Medicine
DX: I10 Essential (primary) hypertension (principal); Z13.1 Encounter for screening for diabetes mellitus; Z12.5 Encounter for screening for malignant neoplasm of prostate; E78.5 Hyperlipidemia, unspecified
CPT/HCPCS: 36415; 80053; 80061; 83036; 84153; 85025; G0103

== ENCOUNTER 2024-10-18 08:43 | Outpatient (RCR) | payer MEDICARE, OTHER, SELFPAY | END 2024-11-09 23:59 | LOC: NS 08:43 | PROVIDERS: PCP Family Medicine; Referring Provider Family Medicine; Visit Provider Family Medicine | DX: Z71.3 Dietary counseling and surveillance (principal); E11.9 Type 2 diabetes mellitus without complications | CPT/HCPCS: 97802 ==

== ENCOUNTER 2024-12-21 08:52 | Outpatient (RCR) | payer MEDICARE, OTHER, SELFPAY | END 2025-01-09 23:59 | LOC: NS 08:52 | PROVIDERS: PCP Family Medicine; Referring Provider Family Medicine; Visit Provider Family Medicine | DX: Z71.3 Dietary counseling and surveillance (principal); E11.9 Type 2 diabetes mellitus without complications | CPT/HCPCS: 97803 ==